=== PATIENT | male | born 1970 | race Caucasian/White ===

== ENCOUNTER 2017-08-26 03:22 | Emergency (ER) | payer OTHER ==
[2017-08-26 03:59] VITALS: BMI 20.4
[2017-08-26] MEDS ORDERED: morphine CARPU-JECT 4 MG/1 ML DISP.SYRIN IVPUSH ONE ×2 (04:01→06:05)
--- NOTE | 2017-08-26 04:11 | PDOC ---
History of Present Illness - General Chief Complaint: Pain Stated Complaint: GROIN PAIN Time Seen by Provider: 08/26/17 03:53 History Source: Patient - History of Present Illness Initial Comments: 08/26/17 04:33 46-year-old male complaining of left groin pain for 2 months that is now for the last 2 weeks noted to have increased swelling and pain. Denies urinary symptoms, +BM. + nausea, denies constipation 08/26/17 06:31 Past History - Past Medical History Allergies/Adverse Reactions: Allergies Allergy/AdvReac Type Severity Reaction Status Date / Time prednisone Allergy Verified 08/26/17 03:52 seafood Allergy anaphlyactic Uncoded 08/26/17 03:52 shock Home Medications: Ambulatory Orders No Home Medications 0 dose .ROUTE UTDICT 02/23/14 Oxycodone HCl/Acetaminophen [Percocet 5-325 mg Tablet] 1 tab PO Q6H PRN #10 tablet MDD 4 08/26/17 Anemia: No Asthma: Yes Cancer: No Cardiac Disorders: No CVA: No COPD: No CHF: No Dementia: No Diabetes: No GI Disorders: Yes Disorders: No HTN: No Hypercholesterolemia: No Liver Disease: No Seizures: No Thyroid Disease: No - Immunization History Immunization Up to Date: Yes - Suicide/Smoking/Psychosocial Hx Smoking History: Never smoked Have you smoked in the past 12 months: No If you are a former smoker, when did you quit?: 0 Information on smoking cessation initiated: No Hx Alcohol Use: Yes (vodka) Drug/Substance Use Hx: No Substance Use Type: None Review of Systems - Review of Systems Able to Perform ROS?: Yes Is the patient limited Prydeinig proficient: No Constitutional: No: Symptoms Reported, See HPI, Chills, Diaphoresis, Fever, Loss of Appetite, Malaise, Night Sweats, Weakness, Weight Stable, Unintentional Wgt. Loss, Unexplained wgt Loss, Other ABD/GI: Yes: Other (left groin pain and swelling) *Physical Exam - Vital Signs Last Vital Signs Temp Pulse Resp BP Pulse Ox 0/0 08/26/17 03:36 - Physical Exam General Appearance: Yes: Mild Distress Gastrointestinal/Abdominal: positive: Normal Bowel Sounds, Soft Male Genitalia: positive: normal genitalia, other (no testicular tenderness + left groin edema. unable to reduce hernia?) Extremity: positive: Normal Capillary Refill, Normal Inspection, Normal Range of Motion Integumentary: positive: Dry, Warm Neurologic: positive: Fully Oriented, Alert ED Treatment Course - LABORATORY CBC & Chemistry Diagram: 08/26/17 05:00 08/26/17 05:00 Progress Note - Progress Note Progress Note: left groin pain r/o incarcerated hernia. P: cbc cmp type and screen CTAP : Lungs laces are clear. The visualized cardiac chambers are of normal size and configuration. The pelvic small and large bowels are normal. Appendix is normal. The urinary bladder and prostate gland are normal. No pelvic free fluid is identified. There is no significant pelvic lymphadenopathy. There is an old compression deformity of T11 with mild retropulsion but no significant central canal narrowing. There is a small fat containing left inguinal hernia without bowel or associated inflammation. Small noninflamed fat-containing left inguinal hernia. pain control Medical Decision Making - Medical Decision Making 08/26/17 06:32 patient reports pain relief. will d/c home. strict return precautions reviewed with patient. *DC/Admit/Observation/Transfer Diagnosis at time of Disposition: Left inguinal hernia - Discharge Dispostion Disposition: HOME - Prescriptions Prescriptions: Oxycodone HCl/Acetaminophen [Percocet 5-325 mg Tablet] 1 tab PO Q6H PRN #10 tablet MDD 4 PRN Reason: Moderate Pain - Referrals Referrals: Rodrick Mello MD [Staff Physician] - - Patient Instructions Printed Discharge Instructions: Groin Hernia -- Adult Additional Instructions: follow up with surgeon as soon as possible take ibuprofen every 6 hours as needed for pain. take percocet every 6hours for moderate pain. return to the ER if symptoms worsen. - Post Discharge Activity
--- NOTE | 2017-08-26 04:26 | PDOC ---
*Physical Exam - Vital Signs Last Vital Signs Temp Pulse Resp BP Pulse Ox 0/0 08/26/17 03:36 ED Treatment Course - LABORATORY CBC & Chemistry Diagram: 08/26/17 05:00 08/26/17 05:00 Medical Decision Making - Medical Decision Making 08/26/17 04:26 agree with care from KWAME Carrion *DC/Admit/Observation/Transfer Diagnosis at time of Disposition: Left inguinal hernia - Discharge Dispostion Disposition: HOME - Prescriptions Prescriptions: Oxycodone HCl/Acetaminophen [Percocet 5-325 mg Tablet] 1 tab PO Q6H PRN #10 tablet MDD 4 PRN Reason: Moderate Pain - Referrals Referrals: Rodrick Mello MD [Staff Physician] - - Patient Instructions Printed Discharge Instructions: Groin Hernia -- Adult Additional Instructions: follow up with surgeon as soon as possible take ibuprofen every 6 hours as needed for pain. take percocet every 6hours for moderate pain. return to the ER if symptoms worsen. - Post Discharge Activity
[2017-08-26] MEDS ORDERED: morphine CARPU-JECT 10 MG/1 ML DISP.SYRIN ONE ×2 (04:35→06:12)
[2017-08-26] MEDS ORDERED: ONDANSETRON 4 MG/2 ML VIAL IVPUSH ONE (04:41)
[2017-08-26 04:48] VITALS: PULSE 103; TEMP 98
[2017-08-26 04:49] VITALS: BP 118/70
[2017-08-26 05:07] LABS: BASO # 0.1 # (0.1-1); BASO % 0.8 % (0-2.0); EOS # 0.1 # (0-4.5); EOS % 1.3 % (0-4.5); LYMPH # 3.4 (8-40); MCH 30.7 pg (25.7-33.7); MCHC 33.9 g/dl (32.0-35.9); MEAN CELL VOLUME 90.3 fl (80-96); MEAN PLT VOLUME 7.6 fl (7.5-11.1); MONO # 0.6 # (3.8-10.2); NEUT # 3.5 # (42.8-82.8); NEUT % 45.4 % (42.8-82.8); PLATELET COUNT 239 K/MM3 (134-434); WHITE BLOOD COUNT 7.7 K/mm3 (4.0-10.0)
[2017-08-26 05:18] LABS: INR 1.08 (0.82-1.09); PROTHROMBIN TIME (PATIENT) 12.2 SEC (9.98-11.88)
[2017-08-26 05:21] LABS: ACTIVATED PTT 32.8 SECONDS (26.9-34.4)
[2017-08-26] MEDS ORDERED: ONDANSETRON 4 MG/2 ML VIAL ONE (05:21)
[2017-08-26 05:45] LABS: ALBUMIN 3.9 g/dl (3.4-5.0); ALK PHOS 108 U/L (45-117); ANION GAP 10 (8-16); BILIRUBIN,TOTAL 0.6 mg/dL (0.2-1.0); CALCIUM 8.6 mg/dL (8.5-10.1); CO2 25 mmol/L (21-32); CREATININE 0.9 mg/dL (0.7-1.3); GLUCOSE,RANDOM 104 mg/dL (74-106); SGPT/ALT 82 U/L (12-78); TOT PROT 8.2 g/dl (6.4-8.2)
[2017-08-26 05:47] LABS: SGOT/AST 50 U/L (15-37)
[2017-08-26 06:31] LABS: URINE APPEARANCE CLEAR; URINE BILIRUBIN NEGATIVE (NEGATIVE); URINE BLOOD 1+ (NEGATIVE); URINE COLOR YELLOW; URINE GLUCOSE (UA) NEGATIVE (NEGATIVE); URINE KETONE NEGATIVE (NEGATIVE); URINE LEUK ESTERASE NEGATIVE (NEGATIVE); URINE NITRITE NEGATIVE (NEGATIVE); URINE PROTEIN NEGATIVE (NEGATIVE); URINE UROBILINOGEN NEGATIVE mg/dL (0.2-1.0)
[2017-08-26 06:48] LABS: URINE HYALINE CAST 6 /lpf; URINE MUCUS FEW; URINE RBC 1 /hpf (0-3); URINE WBC 1 /hpf (3-5)
[2017-08-26 13:55] LABS: URINE LEUK ESTERASE Negative (NEGATIVE)
== END 2017-08-26 06:37 | disposition home or self-care (01) ==
LOC: JER 03:22
PROC: 3E033NZ Introduction of Analgesics, Hypnotics, Sedatives into Peripheral Vein, Percutaneous Approach (ICD-10-PCS; principal; 2017-08-26)
PROC: 3E033NZ Introduction of Analgesics, Hypnotics, Sedatives into Peripheral Vein, Percutaneous Approach (ICD-10-PCS; 2017-08-26)
PROC: 3E033GC Introduction of Other Therapeutic Substance into Peripheral Vein, Percutaneous Approach (ICD-10-PCS; 2017-08-26)
DX: K40.90 Unilateral inguinal hernia, without obstruction or gangrene, not specified as recurrent (principal)
CPT/HCPCS: 36415; 74176-TC; 80053; 81003; 81015; 83690; 85025; 85610; 85730; 86850; 86900; 86901; 99281-25; 99283-25

== ENCOUNTER 2018-05-01 19:15 | Emergency (ER) | payer OTHER ==
[2018-05-01 19:19] VITALS: BMI 24.3
--- NOTE | 2018-05-01 21:34 | PDOC ---
History of Present Illness - General History Source: Patient Exam Limitations: No Limitations - History of Present Illness Initial Comments: 05/01/18 21:29 Patient is a 47-year-old male with past medical history of alcoholism, multiple right ankle fractures, spine fracture and fixation who presents to the emergency department today for chronic swelling in right leg and pain radiating down the left leg. Swelling increases on standing and goes down after lying down. Reports pain also increses as leg swells and gets better as swelling goes down. Patient also reports dilated veins in left leg. Also reporst a scab on lateral aspect on left leg which bleeds once he shaves it off. Patient also have h/o ankle fracture x3 from twist and x- done in last visit shows old healed fracture. Denies recent trauma, fever, chills, sob, chest pain. <Darinel Chavez - Last Filed: 05/01/18 22:30> <Alicia Dunbar - Last Filed: 05/01/18 22:43> - General Chief Complaint: Chronic pain Stated Complaint: CHEST PAIN Time Seen by Provider: 05/01/18 20:44 Past History - Past Medical History Anemia: No Asthma: Yes Cancer: No Cardiac Disorders: No CVA: No COPD: No CHF: No Dementia: No Diabetes: No GI Disorders: Yes Disorders: No HTN: No Hypercholesterolemia: No Liver Disease: No Seizures: No Thyroid Disease: No - Immunization History Immunization Up to Date: Yes - Suicide/Smoking/Psychosocial Hx Smoking History: Never smoked Have you smoked in the past 12 months: No If you are a former smoker, when did you quit?: 0 Information on smoking cessation initiated: No Hx Alcohol Use: Yes Drug/Substance Use Hx: No Substance Use Type: None <Darinel Chavez - Last Filed: 05/01/18 22:30> <Alicia Dunbar - Last Filed: 05/01/18 22:43> - Past Medical History Allergies/Adverse Reactions: Allergies Allergy/AdvReac Type Severity Reaction Status Date / Time prednisone Allergy Verified 04/30/18 00:07 seafood Allergy anaphlyactic Uncoded 04/30/18 00:07 shock Home Medications: Ambulatory Orders No Home Medications 0 dose .ROUTE UTDICT 02/23/14 Oxycodone HCl/Acetaminophen [Percocet 5-325 mg Tablet] 1 tab PO Q6H PRN #10 tablet MDD 4 08/26/17 Review of Systems - Review of Systems Able to Perform ROS?: Yes Constitutional: No: Chills, Fever HEENTM: No: Blurred Vision Respiratory: No: Cough, Shortness of Breath Cardiac (ROS): No: Chest Pain, Edema, Lightheadedness, Palpitations ABD/GI: No: Constipated, Difficulty Swallowing, Nausea : No: Burning, Dysuria, Discharge, Frequency, Incontinence, Pain, Urgency Musculoskeletal: Yes: Back Pain. No: Muscle Weakness Neurological: Yes: Paresthesia (left leg ), Tingling (left leg ). No: Headache <Darinel Chavez - Last Filed: 05/01/18 22:30> *Physical Exam - Vital Signs Last Vital Signs Temp Pulse Resp BP Pulse Ox 98.2 F 90 20 138/90 99 05/01/18 19:16 05/01/18 19:16 05/01/18 19:16 05/01/18 19:16 05/01/18 19:16 - Physical Exam General Appearance: Yes: Appropriately Dressed, Apparent Distress Neck: positive: Supple Respiratory/Chest: positive: Lungs Clear, Normal Breath Sounds. negative: Respiratory Distress, Accessory Muscle Use, Rales Cardiovascular: positive: Regular Rhythm, Regular Rate, S1, S2 Gastrointestinal/Abdominal: positive: Normal Bowel Sounds. negative: Tender, Guarding, Rebound Extremity: positive: Other (dialted tortuous veins present on left side with swelling, swelling decraesed once veins were empty. Scab present on lateral aspect of left leg. no ulcers. No focal tenderness of ankle. ). negative: Tender, Coldness, Cyanosis Neurologic: positive: motor equipment commanding officer II-XII NML intact, Fully Oriented, Alert, Normal Mood/ Affect, Normal Response, Motor Strength 5/5, Other (sensation to fine touch present b/l. pain present on staright leg raising test ) <Darinel Chavez - Last Filed: 05/01/18 22:30> - Vital Signs Last Vital Signs Temp Pulse Resp BP Pulse Ox 98.2 F 90 20 138/90 99 05/01/18 19:16 05/01/18 19:16 05/01/18 19:16 05/01/18 19:16 05/01/18 19:16 <Alicia Dunbar - Last Filed: 05/01/18 22:43> ED Treatment Course - ADDITIONAL ORDERS Additional order review: Laboratory Results 05/01/18 20:40 D-Dimer < 200 <Alicia Dunbar - Last Filed: 05/01/18 22:43> Medical Decision Making - Medical Decision Making 05/01/18 21:39 Patient has chronic pain and swelling in left leg. Swelling is likely from varicose vein present on left side. Pain can also be because of varicose vein and previous ankle fractures. Pain and tingling sensation radiating in leg is likely from lumber radiculopathy as patient has h/o spine surgery and straight leg raising test is positive. Numbness and tingling can also be because of vitamin b12 deficiency as patient is alcoholic and is not on multivitamin. Its less likely ti have DVT but we will get d-dimer. Patient explained in detail that he has varicose vein for which he needs to follow with vascular surgeon. Referral given for Dr. Meng davidson. Patient also advised to follow with his pcp and get vitamin b12 and hBa1c check. Patient didn't have his annual physical in last 30 years. For scab on left leg he needs to get biopsy by slab conditioner supervisor or vascular surgeon.( As it looks like it has vessel under it) 05/01/18 22:16 D-dimer <200. Patient advised to take over the counter pain meds and follow up with above mentioned. Discussed with Dr. Dunbar patient can be discharged home. <Darinel Chavez - Last Filed: 05/01/18 22:30> *DC/Admit/Observation/Transfer - Discharge Dispostion Decision to Admit order: No <Darinel Chavez - Last Filed: 05/01/18 22:30> <Alicia Dunbar - Last Filed: 05/01/18 22:43> Diagnosis at time of Disposition: Lumbar radiculopathy Varicose vein of leg Qualifiers: Varicose vein complication: unspecified Laterality: left Qualified Code(s): I83.92 - Asymptomatic varicose veins of left lower extremity - Discharge Dispostion Disposition: HOME Condition at time of disposition: Stable - Referrals - Patient Instructions Printed Discharge Instructions: DI for Varicose Veins, Lumbar Radiculopathy, DI for Lumbar Radiculopathy Additional Instructions: [email or web address] Dr. Hermila Bell [facility] Wear compression stocking. Keep legs elevated while sitting and sleeping. Wear comfortable shoes. Stop drinking alcohol. Take multivitamin daily. Follow up with your PCP for your physical. Follow up with Neurology Dr. Torres for lumbar rediculopathy. [phone] Meng davidson vascular surgeon for varicose vein. [phone]
--- NOTE | 2018-05-01 22:53 | PDOC ---
Attending Attestation - HPI HPI: 05/01/18 22:56 The patient is a 47 year old female with a significant PMH of alcoholism, asthma and multiple right ankle fractures who presents to the emergency department with chronic pain and left leg swelling . The patient describes his pain and a tingling sensation radiating in leg. He denies any recent injuries. He denies any other symptoms. He denies any numbness or weakness. He denies any fever, chills, nausea, vomit, diarrhea, constipation or urinary symptoms. He denies chest pain, shortness of breath, headache and dizziness. The patient denies any other complaints. - Physicial Exam PE: 05/01/18 22:56 GENERAL: Awake, alert, and fully oriented, in no acute distress HEAD: No signs of trauma EYES: PERRLA, EOMI, sclera anicteric, conjunctiva clear ENT: Auricles normal inspection, hearing grossly normal, nares patent, oropharynx clear without exudates. Moist mucosa NECK: Normal ROM, supple, no lymphadenopathy, JVD, or masses LUNGS: Breath sounds equal, clear to auscultation bilaterally. No wheezes, and no crackles HEART: (+)afibrile. Regular rhythm, normal S1 and S2, no murmurs, rubs or gallops ABDOMEN: Soft, nontender, normoactive bowel sounds. No guarding, no rebound. No masses EXTREMITIES: (+)bilateral varicose veins in legs. Normal range of motion, no edema. No clubbing or cyanosis. No cords, erythema, or tenderness NEUROLOGICAL: Cranial nerves II through XII grossly intact. Normal speech, normal gait SKIN: Warm, Dry, normal turgor, no rashes or lesions noted. Documentation prepared by Silvia Villalobos, acting as biomedical engineering supervisor for Alicia Dunbar MD <Silvia Villalobos - Last Filed: 05/01/18 22:56> - Resident Resident Name: Darinel Chavez - ED Attending Attestation I have performed the following: I have examined & evaluated the patient, The case was reviewed & discussed with the resident, I agree w/resident's findings & plan - Medical Decision Making 05/02/18 02:54 Ddimer negative; no DVT; pt has superficial varicosities of his legs bilaterally and he will be referred to vasc surgery for ablative therapy. We had a long discussion regarding pt's alcoholism. He thinks he has it under control. We suggested that he quit and decrease ETOH intake. <Alicia Dunbar - Last Filed: 05/02/18 02:55>
[2018-05-01 23:00] VITALS: BP 136/78; PULSE 89; TEMP 98.5
--- NOTE | 2018-05-03 13:39 | EKG ---
Test Reason : Blood Pressure : / mmHG Vent. Rate : 084 BPM Atrial Rate : 084 BPM P-R Int : 192 ms QRS Dur : 080 ms QT Int : 384 ms P-R-T Axes : 053 019 034 degrees QTc Int : 453 ms NORMAL SINUS RHYTHM MINIMAL VOLTAGE CRITERIA FOR LVH, MAY BE NORMAL VARIANT BORDERLINE ECG WHEN COMPARED WITH ECG OF 30-SEP-2013 23:06, NO SIGNIFICANT CHANGE WAS FOUND Confirmed by DEEP HAWTHORNE MD ([id number]) on 05/03/2018 1:38:59 PM Referred By: Confirmed By:DEEP HAWTHORNE MD
== END 2018-05-01 23:00 | disposition home or self-care (01) ==
LOC: JER 19:15
DX: I83.92 Asymptomatic varicose veins of left lower extremity (principal); G89.29 Other chronic pain
CPT/HCPCS: 85379; 93005; 93010; 99281-25

== ENCOUNTER 2019-04-26 08:44 | Emergency (ER) | payer OTHER ==
[2019-04-26 08:50] VITALS: BMI 24.4
--- NOTE | 2019-04-26 09:09 | PDOC ---
History of Present Illness - General Chief Complaint: Pain Stated Complaint: ABD PAIN Time Seen by Provider: 04/26/19 09:08 - History of Present Illness Initial Comments: 04/26/19 10:36 HPI: 48 y/o M with hx of lumbar radiculopathy, liver cysts c/b perihepatic fluid collection s/p drain placement 4 years ago now presenting with 3 days of abdominal pain. Pain is diffuse but primarily BL LQ and initially occurred q1- 1.5hrs and lasted 5 seconds at a time; sharp in nature. Pain is worse with food and would wake patient up at night. Pain is now worsened, and occurring with increased frequency. Patient travels for work but reports no food out of the ordinary for him. He also reports nausea and 2 episodes of emesis. He also has subjective fevers, chills, night sweats, lightheadedness. He also reports multiple loose stools and watery diarrhea, now occuring every hour. Denies chest pain, SOB, dizziness, dysuria, BPR, syncope PMHx: as noted above ROS: as noted SHx: Denies tobacco; occasional alcohol; no rec drugs Allergies: NKDA Past History - Past Medical History Allergies/Adverse Reactions: Allergies Allergy/AdvReac Type Severity Reaction Status Date / Time prednisone Allergy Verified 04/26/19 08:49 seafood Allergy anaphlyactic Uncoded 04/26/19 08:49 shock Home Medications: Ambulatory Orders No Home Medications 0 dose .ROUTE UTDICT 02/23/14 Oxycodone HCl/Acetaminophen [Percocet 5-325 mg Tablet] 1 tab PO Q6H PRN #10 tablet MDD 4 08/26/17 Ciprofloxacin [Cipro -] 500 mg PO Q12H #13 tablet 04/26/19 Metoclopramide HCl [Reglan] 5 mg PO QID PRN #10 tablet 04/26/19 metroNIDAZOLE [Flagyl -] 500 mg PO DAILY #20 tablet 04/26/19 Anemia: No Asthma: Yes Cancer: No Cardiac Disorders: No CVA: No COPD: No CHF: No Dementia: No Diabetes: No GI Disorders: Yes Disorders: No HTN: No Hypercholesterolemia: No Liver Disease: No Seizures: No Thyroid Disease: No - Surgical History Abdominal Surgery: Yes (hernia 2 yrs ago) Cholecystectomy: (drain years ago) - Immunization History Immunization Up to Date: Yes - Suicide/Smoking/Psychosocial Hx Smoking History: Never smoked Have you smoked in the past 12 months: No If you are a former smoker, when did you quit?: 0 Hx Alcohol Use: Yes Drug/Substance Use Hx: No Substance Use Type: None Review of Systems - Review of Systems Comments:: 04/26/19 11:54 GENERAL/CONSTITUTIONAL: No weakness. HEAD, EYES, EARS, NOSE AND THROAT: No change in vision. No ear pain or discharge. No sore throat. CARDIOVASCULAR: No chest pain or shortness of breath RESPIRATORY: No cough, wheezing, or hemoptysis. GASTROINTESTINAL: +nausea, vomiting, diarrhea GENITOURINARY: No dysuria, frequency, or change in urination. MUSCULOSKELETAL: No joint or muscle swelling or pain. No neck or back pain. SKIN: No rash NEUROLOGIC: No vertigo, loss of consciousness, or change in strength/sensation. ENDOCRINE: No increased thirst. No abnormal weight change HEMATOLOGIC/LYMPHATIC: No anemia, easy bleeding, or history of blood clots. ALLERGIC/IMMUNOLOGIC: No hives or skin allergy. *Physical Exam - Vital Signs Last Vital Signs Temp Pulse Resp BP Pulse Ox 97.8 F 115 H 18 132/94 98 04/26/19 08:46 04/26/19 08:46 04/26/19 08:46 04/26/19 08:46 04/26/19 08:46 - Physical Exam Comments: 04/26/19 11:55 GENERAL: Awake, alert, and fully oriented, in mild acute distress HEAD: No signs of trauma, normocephalic, atraumatic EYES: PERRLA, EOMI, sclera anicteric, conjunctival pallor ENT: Auricles normal inspection, hearing grossly normal, nares patent, oropharynx clear without exudates. Moist mucosa NECK: Normal ROM, supple, no lymphadenopathy, JVD, or masses LUNGS: No distress, speaks full sentences, clear to auscultation bilaterally HEART: Regular rate and rhythm, normal S1 and S2, no murmurs, rubs or gallops, peripheral pulses normal and equal bilaterally. ABDOMEN: Soft, significant tenderness in RUQ, RLQ, and LLQ with guarding; no CVAT, normoactive bowel sounds. no rebound. No masses : normal testicular exam EXTREMITIES : Normal inspection, Normal range of motion, no edema. No clubbing or cyanosis. NEUROLOGICAL: Cranial nerves II through XII grossly intact. Normal speech, normal gait, no focal sensorimotor deficits SKIN: Warm, Dry, pale ED Treatment Course - LABORATORY CBC & Chemistry Diagram: 04/26/19 10:00 04/26/19 10:00 Medical Decision Making - Medical Decision Making 04/26/19 11:56 48 y/o M with hx of lumbar radiculopathy, liver cysts c/b perihepatic fluid collection s/p drain placement 4 years ago now presenting with 3 days of abdominal pain associated with nausea, emesis, diarrhea. Vitals notable for HR 115. PE with signifcaint abdominal tenderness and guarding. DDx includes gastroenteritis vs biliary pathology vs hepatic pathology vs UTI vs appendicitis -T$S. coags, cbc, cmp, lipase, UA, UCx -CT abd/pel with con, RUQ US -IVF, zofran, ofirmev, pepcid, 04/26/19 11:59 labs unremarkable pain improved since meds and IVF 04/26/19 13:25 CT/ABDOMEN PELVIS CT WITH CONTR Comparison: Prior CT scan of the abdomen pelvis dated 08/26/2017 Visualized lung base appears unremarkable and the heart is within normal limits in size. Partially distended stomach without wall thickening. Evaluation of the liver, spleen, pancreas, gallbladder, both adrenal glands and both kidneys appear unremarkable. There is no evidence of small bowel obstruction. Nondistention of the terminal ileum with suggestion of wall thickening. There is diffuse thickening of the ascending colon with stranding of the surrounding fat as well as mild thickening of the proximal transverse colon consistent with colitis. There is also thickening of the splenic flexure wall. Nondistention of the descending colon limiting its evaluation with suggestion of wall thickening. There is mild stranding around the distal descending colon. Thickening of the sigmoid colon wall.. A moderate size fat-containing left inguinal hernia is present. Partially distended urinary bladder without wall thickening. Normal size prostate gland. Perirectal and pericecal fat are clear. No enlarged mesenteric lymph nodes are identified. No free air is seen. Minimal free fluid in the pelvis. Normal size and enhancement of the abdominal aorta down through its bifurcation with small calcified lax present. Moderate likely chronic compression of T11 vertebral body again seen with mild retropulsion of its diffuse/posterior margin IMPRESSION: Interval thickening of the colon with relative sparing of the transverse colon consistent with colitis, inflammatory versus infectious. Minimal free fluid in the pelvis. There is also suggestion of thickening of the terminal ileum wall. Rule out Crohn's disease. Discussed with patient diagnosis and management recommendations Recommending followup with GI for colonscopy and bx for further eval Patient comfortable with instructions and was DCd home *DC/Admit/Observation/Transfer Diagnosis at time of Disposition: Colitis, Abdominal pain, vomiting, and diarrhea Abdominal pain Qualifiers: Abdominal location: lower abdomen, unspecified Qualified Code(s): R10.30 - Lower abdominal pain, unspecified - Discharge Dispostion Disposition: HOME Condition at time of disposition: Stable Decision to Admit order: No - Prescriptions Prescriptions: Ciprofloxacin [Cipro -] 500 mg PO Q12H #13 tablet Metoclopramide HCl [Reglan] 5 mg PO QID PRN #10 tablet PRN Reason: Nausea metroNIDAZOLE [Flagyl -] 500 mg PO DAILY #20 tablet - Referrals Referrals: ON STAFF,NOT [Primary Care Provider] - Reyes Feldman MD [Staff Physician] - - Patient Instructions Printed Discharge Instructions: DI for Colitis Additional Instructions: Additional Instructions: Please return to the emergency department with any new or worsening symptoms or concerns including severe pain, vomiting, bloody diarrhea. Please follow up with your PCP within 1 week Please see garment form assembler as soon as possible for further evaluation with colonoscopy given CT findings Please take antibiotics as prescribed. Take tylenol for pain. Avoid NSAIDs such as ibuprofen, aleve, advil, naproxen - Post Discharge Activity
[2019-04-26] MEDS ORDERED: ONDANSETRON 4 MG/2 ML VIAL IVPUSH ONE ×2 (09:35→13:14)
[2019-04-26] MEDS ORDERED: SODIUM CHLORIDE 1,000 ML IV STA (09:35)
[2019-04-26] MEDS ORDERED: ONDANSETRON 4 MG/2 ML VIAL ONE ×2 (09:43→13:33)
[2019-04-26] MEDS ORDERED: ACETAMINOPHEN 1000 MG/100 ML VIAL (NON FORMULARY) IVPB ONE (09:55)
[2019-04-26] MEDS ORDERED: FAMOTIDINE 20 MG/50 ML IVPB 20 MG/50 ML MG IVPB ONE ×2 (09:55→10:08)
[2019-04-26] MEDS ORDERED: ACETAMINOPHEN INJECTION 100 ML IVPB ONE (10:08)
[2019-04-26 10:25] LABS: BASO % 0.6 % (0-2.0); EOS % 1.2 % (0-4.5); HEMATOCRIT 45.9 % (35.4-49); HEMOGLOBIN 15.9 GM/dL (11.7-16.9); LYMPH % 19.3 % (8-40); MCH 31.4 pg (25.7-33.7); MCHC 34.7 g/dl (32.0-35.9); MEAN CELL VOLUME 90.4 fl (80-96); MEAN PLT VOLUME 7.6 fl (7.5-11.1); MONO % 10.3 % (3.8-10.2); NEUT % 68.6 % (42.8-82.8); PLATELET COUNT 202 K/MM3 (134-434); RBC 5.08 M/mm3 (4.00-5.60); RDW 13.7 % (11.9-15.9); WHITE BLOOD COUNT 5.9 K/mm3 (4.0-10.0)
[2019-04-26 10:55] LABS: ALBUMIN 3.5 g/dl (3.4-5.0); BILIRUBIN,TOTAL 0.8 mg/dL (0.2-1); BLOOD UREA NITROGEN 6.6 mg/dL (7-18); POTASSIUM 3.9 mmol/L (3.5-5.1); TOT PROT 7.3 g/dl (6.4-8.2)
[2019-04-26 11:07] LABS: INR 1.1 (0.83-1.09)
[2019-04-26] MEDS ORDERED: SODIUM CHLORIDE 0.9% 1000 ML INFUS.BAG IV ONE (12:39)
[2019-04-26 12:48] LABS: PH,URINE 5.5 (5.0-8.0); URINE APPEARANCE CLEAR; URINE BILIRUBIN NEGATIVE (NEGATIVE); URINE COLOR YELLOW; URINE GLUCOSE (UA) NEGATIVE (NEGATIVE); URINE KETONE TRACE (NEGATIVE); URINE LEUK ESTERASE NEGATIVE (NEGATIVE); URINE NITRITE NEGATIVE (NEGATIVE); URINE PROTEIN TRACE (NEGATIVE); URINE UROBILINOGEN 0.2 mg/dL (0.2-1.0)
[2019-04-26] MEDS ORDERED: metroNIDAZOLE 250 MG TABLET PO ONE (13:45)
[2019-04-26] MEDS ORDERED: CIPROFLOXACIN 500 MG TABLET (RESTRICTED TO ID) PO ONE (13:45)
[2019-04-26 13:52] VITALS: TEMP 98.1
[2019-04-26] MEDS ORDERED: metroNIDAZOLE 250 MG TABLET ONE (14:10)
--- NOTE | 2019-04-26 14:46 | PDOC ---
Documentation entered by Gracie Campos SCRIBE, acting as scribe for Romeo Orozco MD. Romeo Orozco MD: This documentation has been prepared by the Andres glover Sammi, SCRIBE, under my direction and personally reviewed by me in its entirety. I confirm that the documentation accurately reflects all work, treatment, procedures, and medical decision making performed by me. Attending Attestation - Resident Resident Name: ManperetBetinajerri - ED Attending Attestation I have performed the following: I have examined & evaluated the patient, The case was reviewed & discussed with the resident, I agree w/resident's findings & plan, Exceptions are as noted - HPI HPI: 04/26/19 12:27 The patient is a 48 year old male, with a significant PMH of lumbar radiculopathy, liver cysts, who presents to the emergency department for evaluation of 3 days of sharp, diffuse, abdominal pain with associated nausea, nonbloody, nonbilious vomiting x2, and diarrhea. The patient also reports a subjective fever and chills. Denies new food or recent travel. Denies chest pain, shortness of breath, headache and dizziness. Denies dysuria, frequency, urgency and hematuria. Allergies: Prednisone, seafood Social history: Occasional alcohol PCP: Adalid - Physicial Exam PE: 04/26/19 12:35 Vitals: Triage vital signs reviewed General Appearance: No acute distress, well nourished, well developed Cardiac: Regular rate and rhythm, no murmurs, no rubs, no gallops Lungs: Clear to auscultation bilateral, good air movement bilaterally Abdomen: (+)mild lower abdominal tenderness. Soft, nondistended, normal bowel sounds. No rebound or guarding. Extremities: Full range of motion to all extremities, no cyanosis, clubbing, or edema - Medical Decision Making 04/26/19 15:08 48 years old with lifelong history of abdominal pain and diarrhea presents to the ED with several day history of diffuse intermittent abdominal discomfort were nonbloody nonbilious vomiting and diarrhea CAT scan demonstrates colitis with possible thickening of the terminal ileum patient treated with Cipro Flagyl informed of need for GI follow-up to evaluate for the possibility of Crohn's disease Findings, the need for follow-up and strict return instructions discussed with patient.
[2019-04-26 15:19] VITALS: BP 123/88; PULSE 87
== END 2019-04-26 15:17 | disposition home or self-care (01) ==
LOC: JER 08:44
PROC: 3E0337Z Introduction of Electrolytic and Water Balance Substance into Peripheral Vein, Percutaneous Approach (ICD-10-PCS; principal; 2019-04-26)
PROC: 3E033NZ Introduction of Analgesics, Hypnotics, Sedatives into Peripheral Vein, Percutaneous Approach (ICD-10-PCS; 2019-04-26)
PROC: 3E033GC Introduction of Other Therapeutic Substance into Peripheral Vein, Percutaneous Approach (ICD-10-PCS; 2019-04-26)
PROC: 3E033GC Introduction of Other Therapeutic Substance into Peripheral Vein, Percutaneous Approach (ICD-10-PCS; 2019-04-26)
DX: K52.9 Noninfective gastroenteritis and colitis, unspecified (principal)
CPT/HCPCS: 36415; 74177-TC; 76705-TC; 80053; 81003; 83690; 85025; 85610; 85730; 86850; 86900; 86901; 87086; 99283-25; J0131; J7030

== ENCOUNTER 2020-04-16 03:08 | Emergency (ER) | payer OTHER ==
[2020-04-16 03:28] VITALS: TEMP 97.9; BMI 25.9
--- NOTE | 2020-04-16 04:32 | PDOC ---
Attending Attestation - Resident Resident Name: Joesph Mg - ED Attending Attestation I have performed the following: I have examined & evaluated the patient, The case was reviewed & discussed with the resident, I agree w/resident's findings & plan, Exceptions are as noted - HPI HPI: 49 yo M history inguinal hernia presents with groin pain x2 days. He has prior history of inguinal hernia, which was repaired 2 years ago. He states that he had tightness in the left groin which has increased over the past 2 weeks, but has been much worse for the past 2 days. Denies penile discharge. - Physicial Exam PE: GENERAL: Awake, alert, and fully oriented, in no acute distress HEAD: No signs of trauma EYES: PERRLA, EOMI, sclera anicteric, conjunctiva clear ENT: Auricles normal inspection, hearing grossly normal, nares patent, oropharynx clear without exudates. Moist mucosa NECK: Normal ROM, supple, no lymphadenopathy, JVD, or masses LUNGS: Breath sounds equal, clear to auscultation bilaterally. No wheezes, and no crackles HEART: Regular rate and rhythm, normal S1 and S2, no murmurs, rubs or gallops ABDOMEN: Soft, nontender, normoactive bowel sounds. No guarding, no rebound. No masses EXTREMITIES: Normal range of motion, no edema. No clubbing or cyanosis. No cords, erythema, or tenderness NEUROLOGICAL: Cranial nerves II through XII grossly intact. Normal speech. Motor and sensation intact. +Antalgic gait SKIN: Warm, dry, normal turgor, no rashes or lesions noted. - Medical Decision Making Groin pain, elevated lactate, r/o strangulated hernia vs testicular torsion. Discharge - Discharge Information Problems reviewed: Yes Clinical Impression/Diagnosis: Hydrocele, bilateral, Testicular cyst Inguinal hernia Qualifiers: Obstruction and gangrene presence: without obstruction or gangrene Laterality: bilateral Recurrence: not specified as recurrent Qualified Code(s): K40.20 - Bilateral inguinal hernia, without obstruction or gangrene, not specified as recurrent Condition: Stable Disposition: HOME - Additional Discharge Information Prescriptions: Oxycodone HCl/Acetaminophen [Percocet 5-325 mg Tablet] 1 tab PO Q6H PRN #2 tablet MDD 2 PRN Reason: Pain Level 4 - 6 - Follow up/Referral Referrals: Rodrick Mello MD [Staff Physician] - Dominick Ewing MD [Staff Physician] - - Patient Discharge Instructions Patient Printed Discharge Instructions: DI for Groin Hernia, DI for Hydrocele- Adult Additional Instructions: You were seen in the ER for complaints of abdominal pain Your labwork and CT were largely normal Your scan showed an unchanged inguinal hernia. Your ultrasound showed a small left testicular cyst and small bilateral hydroceles. You are to follow up with General Surgery and Urology within 1 week and you have referrals provided to you today. Return to the ER if you develop worsening abdominal pain, constipation, inability to pass gas, testicular pain, vomiting or any other concerning symptoms. - Post Discharge Activity
[2020-04-16] MEDS ORDERED: morphine SULFATE 4 MG/ML VIAL IVPUSH ONE (04:43)
[2020-04-16] MEDS ORDERED: morphine SULFATE 4 MG/ML VIAL ONE (04:49)
[2020-04-16 05:33] LABS: BASO % 0.7 % (0-2.0); EOS % 1.1 % (0-4.5); HEMATOCRIT 47.4 % (35.4-49); HEMOGLOBIN 16.3 GM/dL (11.7-16.9); LYMPH % 47.6 % (8-40); MCH 31.2 pg (25.7-33.7); MCHC 34.4 g/dl (32.0-35.9); MEAN CELL VOLUME 90.6 fl (80-96); MEAN PLT VOLUME 7.5 fl (7.5-11.1); MONO % 6.4 % (3.8-10.2); NEUT % 44.2 % (42.8-82.8); PLATELET COUNT 236 K/MM3 (134-434); RBC 5.23 M/mm3 (4.00-5.60); RDW 13.5 % (11.9-15.9); WHITE BLOOD COUNT 7.5 K/mm3 (4.0-10.0)
[2020-04-16 05:59] LABS: ALBUMIN 4.4 g/dl (3.4-5.0); BILIRUBIN,TOTAL 0.4 mg/dL (0.2-1); BLOOD UREA NITROGEN 14.7 mg/dL (7-18); CALCIUM 9.1 mg/dL (8.5-10.1); CREATININE 0.9 mg/dL (0.55-1.3); POTASSIUM 4.1 mmol/L (3.5-5.1); TOT PROT 8.2 g/dl (6.4-8.2)
--- NOTE | 2020-04-16 06:47 | PDOC ---
History of Present Illness <Bria Ayers - Last Filed: 04/16/20 07:36> - History of Present Illness Initial Comments: 49 YOM h/o inguinal hernia presents with groin pain of 2 days duration. Patient reports that he had inguinal hernia 2 years ago on the left side that was surgically repaired. He reports that he had always had some "tightness" in his left groin, however 2 weeks ago this sensation was particularly increased. 2 days prior to arrival he began to experience intense pain in this region. He also reports an accompanying bulge in his groin on the left side. He denies fever, chills, nausea, vomiting, diarrhea, urinary symptoms, bowel symptoms, penile discharge, or recent sexual activity or vigorous exercise. Constitutional: No Weight Change, No Fever, No Chills, No Night Sweats, No F atigue, No Malaise ENT/Mouth: No Hearing Changes, No Ear Pain, No Nasal Congestion, No Sinus Pain, No Hoarseness, No sore throat, No Rhinorrhea, No Swallowing Difficulty Eyes: No Eye Pain, No Swelling, No Redness, No Foreign Body, No Discharge, No Vision Changes Cardiovascular: No Chest Pain, No SOB, No PND, No Dyspnea on Exertion, No Orthopnea, No Claudication, No Edema, No Palpitations Respiratory: No Cough, No Sputum, No Wheezing, No Smoke Exposure, No Dyspnea Gastrointestinal: No Nausea, No Vomiting, No Diarrhea, No Constipation, No Pain, No Heartburn, No Anorexia, No Dysphagia, No Hematochezia, No Melena, No Flatulence, No Jaundice Genitourinary: No Dyspareunia, No Dysuria, No Urinary Frequency, No Hematuria, No Urinary Incontinence, No Urgency, No Flank Pain, No Urinary Flow Changes, No Hesitancy Musculoskeletal: No Arthralgias, No Myalgias, No Joint Swelling, No Joint Stiff ness, No Back Pain, No Neck Pain, No Injury History Skin: No Skin Lesions, No Pruritis, No Hair Changes, No Breast/Skin Changes, No Nipple Discharge Neuro: No Weakness, No Numbness, No Paresthesias, No Loss of Consciousness, No Syncope, No Dizziness, No Headache, No Coordination Changes, No Recent Falls Psych: No Anxiety/Panic, No Depression, No Insomnia, No Personality Changes, No Delusions, No Rumination, No SI/HI/AH/VH, No Social Issues, No Memory Changes, No Violence/Abuse Hx., No Eating Concerns Heme/Lymph: No Bruising, No Bleeding, No Transfusions History, No Lymphadenopathy Endocrine: No Polyuria, No Polydipsia, No Temperature Intolerance 04/16/20 06:47 <Joesph Mg - Last Filed: 04/18/20 20:48> - General Chief Complaint: Pain, Acute Stated Complaint: CROTCH PAIN Time Seen by Provider: 04/16/20 03:53 Past History <Bria Ayers - Last Filed: 04/16/20 07:36> - Medical History Anemia: No Asthma: Yes Cancer: No Cardiac Disorders: No CVA: No COPD: No CHF: No Dementia: No Diabetes: No GI Disorders: Yes Disorders: No HTN: No Hypercholesterolemia: No Liver Disease: No Psychiatric Problems: Yes Seizures: No Thyroid Disease: No - Surgical History Abdominal Surgery: Yes (hernia 2 yrs ago) Cholecystectomy: (drain years ago) - Immunization History Immunization Up to Date: Yes - Psycho-Social/Smoking History Smoking History: Never smoked Have you smoked in the past 12 months: No If you are a former smoker, when did you quit?: 0 - Substance Abuse Hx (Audit-C & DAST Scrn) How often the patient has a drink containing alcohol: 4 0r more times/wk Number of drinks the patient has on a typical day: 3 or 4 How often the patient has six or more drinks on one occasion: Weekly Score: In Men: 4 or > Positive; In Women: 3 or > Positive: 8 Screen Result (Pos requires Nsg. Audit-10AR): Positive In the last yr the pt used illegal drug/Rx for NonMed reason: No Score: Yes response is considered Positive: 0 Screen Result (Positive result requires Nsg. DAST-10): Negative <Joesph Mg - Last Filed: 04/18/20 20:48> - Medical History Allergies/Adverse Reactions: Allergies Allergy/AdvReac Type Severity Reaction Status Date / Time prednisone Allergy Verified 04/26/19 08:49 seafood Allergy anaphlyactic Uncoded 04/26/19 08:49 shock Home Medications: Ambulatory Orders No Home Medications 0 dose .ROUTE UTDICT 02/23/14 Oxycodone HCl/Acetaminophen [Percocet 5-325 mg Tablet] 1 tab PO Q6H PRN #10 tablet MDD 4 08/26/17 Ciprofloxacin [Cipro -] 500 mg PO Q12H #13 tablet 04/26/19 Metoclopramide HCl [Reglan] 5 mg PO QID PRN #10 tablet 04/26/19 metroNIDAZOLE [Flagyl -] 500 mg PO DAILY #20 tablet 04/26/19 Oxycodone HCl/Acetaminophen [Percocet 5-325 mg Tablet] 1 tab PO Q6H PRN #2 tablet MDD 2 04/16/20 *Physical Exam - Vital Signs Last Vital Signs Temp Pulse Resp BP Pulse Ox 97.9 F 105 H 18 118/77 98 04/16/20 03:26 04/16/20 03:26 04/16/20 03:26 04/16/20 03:26 04/16/20 03:26 <Bria Ayers - Last Filed: 04/16/20 07:36> - Vital Signs Last Vital Signs Temp Pulse Resp BP Pulse Ox 97.9 F 105 H 18 118/77 98 04/16/20 03:26 04/16/20 03:26 04/16/20 03:26 04/16/20 03:26 04/16/20 03:26 - Physical Exam General Appearance: Yes: Nourished, Apparent Distress HEENT: positive: EOMI, TRIXIE, Normal ENT Inspection, Normal Voice Neck: positive: Tender, Normal Thyroid Respiratory/Chest: positive: Lungs Clear, Normal Breath Sounds Cardiovascular: positive: Regular Rhythm, Regular Rate, S1, S2 Gastrointestinal/Abdominal: positive: Flat, Soft Male Genitalia: positive: inguinal hernia Musculoskeletal: positive: Normal Inspection, CVA Tenderness Extremity: positive: Normal Capillary Refill, Normal Inspection Integumentary: positive: Normal Color, Dry, Warm Neurologic: positive: Fully Oriented, Alert, Normal Mood/Affect, Normal Response, Motor Strength 5/5 <Joesph Mg - Last Filed: 04/18/20 20:48> ED Treatment Course - LABORATORY CBC & Chemistry Diagram: 04/16/20 05:00 04/16/20 05:00 - ADDITIONAL ORDERS Additional order review: Laboratory Results 04/16/20 04/16/20 05:00 05:00 Sodium 141 Potassium 4.1 Chloride 105 Carbon Dioxide 22 Anion Gap 13 BUN 14.7 Creatinine 0.9 Est GFR (CKD-EPI)AfAm 114.21 Est GFR (CKD-EPI)NonAf 98.54 Random Glucose 90 Lactic Acid 3.4 H* Calcium 9.1 Total Bilirubin 0.4 AST 35 ALT 55 Alkaline Phosphatase 89 Total Protein 8.2 Albumin 4.4 04/16/20 05:00 RBC 5.23 MCV 90.6 MCHC 34.4 RDW 13.5 MPV 7.5 Neutrophils % 44.2 D Lymphocytes % 47.6 H D Monocytes % 6.4 Eosinophils % 1.1 Basophils % 0.7 - Medications Given in the ED: ED Medications Discontinued Medications Generic Name Dose Route Start Last Admin Trade Name Freq PRN Reason Stop Dose Admin Morphine Sulfate 4 mg 04/16/20 04:43 04/16/20 05:06 Morphine Sulfate IVPUSH 04/16/20 04:44 4 mg ONCE ONE Administration <Bria Ayers - Last Filed: 04/16/20 07:36> - LABORATORY CBC & Chemistry Diagram: 04/16/20 05:00 04/16/20 05:00 - ADDITIONAL ORDERS Additional order review: Laboratory Results 04/16/20 04/16/20 05:00 05:00 Sodium 141 Potassium 4.1 Chloride 105 Carbon Dioxide 22 Anion Gap 13 BUN 14.7 Creatinine 0.9 Est GFR (CKD-EPI)AfAm 114.21 Est GFR (CKD-EPI)NonAf 98.54 Random Glucose 90 Lactic Acid 3.4 H* Calcium 9.1 Total Bilirubin 0.4 AST 35 ALT 55 Alkaline Phosphatase 89 Total Protein 8.2 Albumin 4.4 04/16/20 05:00 RBC 5.23 MCV 90.6 MCHC 34.4 RDW 13.5 MPV 7.5 Neutrophils % 44.2 D Lymphocytes % 47.6 H D Monocytes % 6.4 Eosinophils % 1.1 Basophils % 0.7 - Medications Given in the ED: ED Medications Discontinued Medications Generic Name Dose Route Start Last Admin Trade Name Freq PRN Reason Stop Dose Admin Morphine Sulfate 4 mg 04/16/20 04:43 04/16/20 05:06 Morphine Sulfate IVPUSH 04/16/20 04:44 4 mg ONCE ONE Administration <Joesph Mg - Last Filed: 04/18/20 20:48> Medical Decision Making - Medical Decision Making 49 YOM h/o inguinal hernia presents with groin pain of 2 days duration. Patient reports that he had inguinal hernia 2 years ago on the left side that was surgically repaired. He reports that he had always had some "tightness" in his left groin, however 2 weeks ago this sensation was particularly increased. 2 days prior to arrival he began to experience intense pain in this region. He also reports an accompanying bulge in his groin on the left side. He denies fever, chills, nausea, vomiting, diarrhea, urinary symptoms, bowel symptoms, penile discharge, or recent sexual activity or vigorous exercise. On arrival vitals are wnl, exam reveals large bulge on left side of groin, 4 cm off the midline consistent with inguinal hernia, is not reducible. ddx includes but is not limited to: inguinal hernia, testicular torsion, epididymitis. plan: CT abdomen and pelvis, Srotal Ultrasound. CBC, CMP, lactate. Pain control with morphine. reassess: Labs wnl. Lactate 3.4, CT revealed bilateral inguinal hernias, left greater than right, with no acute abdominal pathology. Scrotal US shows small testicular cyst, no evidence of torsion. dispo: patient was signed out to daytime team. <Joesph Mg - Last Filed: 04/18/20 20:48> Discharge - Discharge Information Problems reviewed: Yes <Bria Ayers - Last Filed: 04/16/20 07:36> <Joesph Mg - Last Filed: 04/18/20 20:48> - Discharge Information Clinical Impression/Diagnosis: Hydrocele, bilateral, Testicular cyst Inguinal hernia Qualifiers: Obstruction and gangrene presence: without obstruction or gangrene Laterality: bilateral Recurrence: not specified as recurrent Qualified Code(s): K40.20 - Bilateral inguinal hernia, without obstruction or gangrene, not specified as recurrent Condition: Stable Disposition: HOME - Additional Discharge Information Prescriptions: Oxycodone HCl/Acetaminophen [Percocet 5-325 mg Tablet] 1 tab PO Q6H PRN #2 tablet MDD 2 PRN Reason: Pain Level 4 - 6 - Follow up/Referral Referrals: Rodrick Mello MD [Staff Physician] - Dominick Ewing MD [Staff Physician] - - Patient Discharge Instructions Patient Printed Discharge Instructions: DI for Groin Hernia, DI for Hydrocele- Adult Additional Instructions: You were seen in the ER for complaints of abdominal pain Your labwork and CT were largely normal Your scan showed an unchanged inguinal hernia. Your ultrasound showed a small left testicular cyst and small bilateral hydroceles. You are to follow up with General Surgery and Urology within 1 week and you have referrals provided to you today. Return to the ER if you develop worsening abdominal pain, constipation, inability to pass gas, testicular pain, vomiting or any other concerning symptoms.
[2020-04-16] MEDS ORDERED: morphine CARPU-JECT 2 MG/1 ML DISP.SYRIN IVPUSH ONE (07:35)
[2020-04-16] MEDS ORDERED: MORPHINE SULFATE 2 MG/ML VIAL ONE (07:41)
[2020-04-16] MEDS ORDERED: SODIUM CHLORIDE 500 ML IV SCH (07:45)
--- NOTE | 2020-04-16 10:22 | PDOC ---
*Physical Exam - Vital Signs Last Vital Signs Temp Pulse Resp BP Pulse Ox 97.9 F 105 H 18 118/77 98 04/16/20 03:26 04/16/20 03:26 04/16/20 03:26 04/16/20 03:26 04/16/20 03:26 - Physical Exam 04/16/20 10:15 Patient's care endorsed to me at the beginning of my shift. Patient is a 49YOM with h/o chronic low abdominal pain who p/w worsened pain in the past 2 weeks, significantly worse overnight tonight. Denies testicular pain/swelling, states pain is in the left low groin radiating slightly to proximal medial thigh. Given morphine initially for pain with relief. Elevated lactate, pending CT imaging and reassessment. ED Treatment Course - LABORATORY CBC & Chemistry Diagram: 04/16/20 05:00 04/16/20 05:00 - ADDITIONAL ORDERS Additional order review: Laboratory Results 04/16/20 04/16/20 04/16/20 08:30 05:00 05:00 Sodium 141 Potassium 4.1 Chloride 105 Carbon Dioxide 22 Anion Gap 13 BUN 14.7 Creatinine 0.9 Est GFR (CKD-EPI)AfAm 114.21 Est GFR (CKD-EPI)NonAf 98.54 Random Glucose 90 Lactic Acid 2.4 H* 3.4 H* Calcium 9.1 Total Bilirubin 0.4 AST 35 ALT 55 Alkaline Phosphatase 89 Total Protein 8.2 Albumin 4.4 04/16/20 05:00 RBC 5.23 MCV 90.6 MCHC 34.4 RDW 13.5 MPV 7.5 Neutrophils % 44.2 D Lymphocytes % 47.6 H D Monocytes % 6.4 Eosinophils % 1.1 Basophils % 0.7 - Medications Given in the ED: ED Medications Discontinued Medications Generic Name Dose Route Start Last Admin Trade Name Freq PRN Reason Stop Dose Admin Morphine Sulfate 4 mg 04/16/20 04:43 04/16/20 05:06 Morphine Sulfate IVPUSH 04/16/20 04:44 4 mg ONCE ONE Administration Morphine Sulfate 2 mg 04/16/20 07:35 04/16/20 07:44 Morphine Injection - IVPUSH 04/16/20 07:36 2 mg ONCE ONE Administration Medical Decision Making - Medical Decision Making 04/16/20 10:18 CT/ABDOMEN PELVIS CT WITH CONTR HISTORY PROVIDED: Rule out inguinal hernia. Sequential axial images were obtained from the domes of the diaphragms through the symphysis pubis following the administration of intravenous contrast material. The lung bases are clear. The liver is normal in size. It is hypodense in texture consistent with diffuse fatty infiltration. No mass lesions identified within the liver. The spleen, pancreas, adrenal glands and kidneys demonstrate no significant abnormalities. There is no evidence of intra- abdominal or retroperitoneal lymphadenopathy or fluid collections. There is a large fat-containing left inguinal hernia and a smaller fat-containing right inguinal hernia. There has been no significant change in the appearance of these hernias since a prior study dated 04/26/2019. There is no evidence of pneumoperitoneum, bowel obstruction or intra-abdominal abscess. There is no CT evidence of acute appendicitis or diverticulitis. Examination of the pelvis demonstrates no evidence of pelvic masses, fluid collections or lymphadenopathy. There is a compression fracture of T11 of uncertain chronicity. There is no additional evidence of acute bony pathology. IMPRESSION: 1. Diffuse fatty infiltration of liver. 2. Bilateral fat-containing inguinal hernias, left greater than right. 3. No evidence of acute pathology within the abdomen and pelvis. Please see above discussion. On reassessment patient has mild inferomedial inguinal pain at this time, no testicular pain or swelling, on exam with mild ttp inferomerial inguinal region without testicular swelling or skin changes or abnormal lay or deficit in cremasteric reflex. Patient very well appearing but did require second dose of morphine, initially had elevated lactate 3.4 which has come own to 2.4. Will get testicular USS r/o torsion or orchitis/epididymitis, then will reassess, anticipate discharge home. Dispo per resident note. US/SCROTUM AND CONTENTS US HISTORY PROVIDED: Rule out torsion. Real time and doppler evaluation of the testes demonstrates the following: The testes are normal in size with the right testicle measuring 4.2 x 2.8 x 1.9 cm and the left testicle measuring 4.5 x 3.0 x 2.1 cm. They are normal in texture with no evidence of testicular masses. There is a small cyst within the left testicle measuring 3 mm. Arterial and venous flow is documented within both testes with no evidence of torsion. No epididymal abnormalities are present. There are small hydroceles identified bilaterally. IMPRESSION: 1. Small left testicular cyst. 2. Small bilateral hydroceles. 3. No evidence of torsion or acute pathology. Provider Orders Category Date Time Status ABDOMEN & PELVIS CT WITH CONTR [CT] Stat CT Scan 04/16/20 05:04 Completed CBC WITH DIFFERENTIAL Stat Lab 04/16/20 05:00 Completed COMP METABOLIC PANEL Stat Lab 04/16/20 05:00 Completed LACTIC ACID Stat Lab 04/16/20 05:00 Completed LACTIC ACID Stat Lab 04/16/20 08:30 Completed Morphine Injection - Medication 04/16/20 07:35 Discontinued 2 mg IVPUSH ONCE ONE Morphine Sulfate Medication 04/16/20 07:41 Discontinued 2 mg .ROUTE .STK-MED ONE Morphine Sulfate Medication 04/16/20 04:49 Discontinued 4 mg .ROUTE .STK-MED ONE Morphine Sulfate Medication 04/16/20 04:43 Discontinued 4 mg IVPUSH ONCE ONE Sodium Chloride [Normal Saline -] 500 ml Medication 04/16/20 07:45 Active IV ASDIR IV Insert NOW Phy Order 04/16/20 04:47 Completed SCROTUM AND CONTENTS US [US] Stat Ultrasound 04/16/20 10:12 Completed Medications Generic Name Dose Route Start Last Admin Trade Name Freq PRN Reason Stop Dose Admin Sodium Chloride 500 mls @ 0 mls/hr 04/16/20 07:45 04/16/20 07:45 Normal Saline - IV 500 mls/hr ASDIR LISA Administration Wide Open Discontinued Medications Generic Name Dose Route Start Last Admin Trade Name Freq PRN Reason Stop Dose Admin Morphine Sulfate 4 mg 04/16/20 04:43 04/16/20 05:06 Morphine Sulfate IVPUSH 04/16/20 04:44 4 mg ONCE ONE Administration Morphine Sulfate Confirm 04/16/20 04:49 Morphine Sulfate Administered 04/16/20 04:50 Dose 4 mg .ROUTE .STK-MED ONE Morphine Sulfate 2 mg 04/16/20 07:35 04/16/20 07:44 Morphine Injection - IVPUSH 04/16/20 07:36 2 mg ONCE ONE Administration Morphine Sulfate Confirm 04/16/20 07:41 Morphine Sulfate Administered 04/16/20 07:42 Dose 2 mg .ROUTE .STK-MED ONE Lab Results WBC 7.5 K/mm3 (4.0-10.0) 04/16/20 05:00 RBC 5.23 M/mm3 (4.00-5.60) 04/16/20 05:00 Hgb 16.3 GM/dL (11.7-16.9) 04/16/20 05:00 Hct 47.4 % (35.4-49) 04/16/20 05:00 MCV 90.6 fl (80-96) 04/16/20 05:00 MCH 31.2 pg (25.7-33.7) 04/16/20 05:00 MCHC 34.4 g/dl (32.0-35.9) 04/16/20 05:00 RDW 13.5 % (11.9-15.9) 04/16/20 05:00 Plt Count 236 K/MM3 (134-434) 04/16/20 05:00 MPV 7.5 fl (7.5-11.1) 04/16/20 05:00 Absolute Neuts (auto) 3.3 K/mm3 (1.5-8.0) 04/16/20 05:00 Neutrophils % 44.2 % (42.8-82.8) D 04/16/20 05:00 Lymphocytes % 47.6 % (8-40) H D 04/16/20 05:00 Monocytes % 6.4 % (3.8-10.2) 04/16/20 05:00 Eosinophils % 1.1 % (0-4.5) 04/16/20 05:00 Basophils % 0.7 % (0-2.0) 04/16/20 05:00 Nucleated RBC % 0 % (0-0) 04/16/20 05:00 Sodium 141 mmol/L (136-145) 04/16/20 05:00 Potassium 4.1 mmol/L (3.5-5.1) 04/16/20 05:00 Chloride 105 mmol/L (98-107) 04/16/20 05:00 Carbon Dioxide 22 mmol/L (21-32) 04/16/20 05:00 Anion Gap 13 MMOL/L (8-16) 04/16/20 05:00 BUN 14.7 mg/dL (7-18) 04/16/20 05:00 Creatinine 0.9 mg/dL (0.55-1.3) 04/16/20 05:00 Est GFR (CKD-EPI)AfAm 114.21 04/16/20 05:00 Est GFR (CKD-EPI)NonAf 98.54 04/16/20 05:00 Random Glucose 90 mg/dL (74-106) 04/16/20 05:00 Lactic Acid 2.4 mmol/L (0.4-2.0) H* 04/16/20 08:30 Calcium 9.1 mg/dL (8.5-10.1) 04/16/20 05:00 Total Bilirubin 0.4 mg/dL (0.2-1) 04/16/20 05:00 AST 35 U/L (15-37) 04/16/20 05:00 ALT 55 U/L (13-61) 04/16/20 05:00 Alkaline Phosphatase 89 U/L (45-117) 04/16/20 05:00 Total Protein 8.2 g/dl (6.4-8.2) 04/16/20 05:00 Albumin 4.4 g/dl (3.4-5.0) 04/16/20 05:00 04/16/20 13:31 On reassessment patient's HR has decreased to low 80s.Patient states pain is nearly back to baseline chronic low abdominal pain at this time. He requests 2 Percocet Rx case the pain recurs while he is traveling (travels on Thursday). I agree and send the Rx but discuss with the patient that if his pain gets to the level where he needs Percocet, he should come back here or go to the nearest ED. He agrees to this, will follow up with his PCP, specific return precautions are discussed, dispo per resident note. Discharge - Discharge Information Problems reviewed: Yes Clinical Impression/Diagnosis: Hydrocele, bilateral, Testicular cyst Inguinal hernia Qualifiers: Obstruction and gangrene presence: without obstruction or gangrene Laterality: bilateral Recurrence: not specified as recurrent Qualified Code(s): K40.20 - Ritchie ateral inguinal hernia, without obstruction or gangrene, not specified as recurrent Condition: Stable Disposition: HOME - Admission No - Additional Discharge Information Prescriptions: Oxycodone HCl/Acetaminophen [Percocet 5-325 mg Tablet] 1 tab PO Q6H PRN #2 tablet MDD 2 PRN Reason: Pain Level 4 - 6 - Follow up/Referral Referrals: Rodrick Mello MD [Staff Physician] - Dominick Ewing MD [Staff Physician] - - Patient Discharge Instructions Patient Printed Discharge Instructions: DI for Groin Hernia, DI for Hydrocele- Adult Additional Instructions: You were seen in the ER for complaints of abdominal pain Your labwork and CT were largely normal Your scan showed an unchanged inguinal hernia. Your ultrasound showed a small left testicular cyst and small bilateral hydroceles. You are to follow up with General Surgery and Urology within 1 week and you have referrals provided to you today. Return to the ER if you develop worsening abdominal pain, constipation, inabi lity to pass gas, testicular pain, vomiting or any other concerning symptoms. - Post Discharge Activity
--- NOTE | 2020-04-16 10:32 | PDOC ---
*Physical Exam - Vital Signs Last Vital Signs Temp Pulse Resp BP Pulse Ox 97.9 F 105 H 18 118/77 98 04/16/20 03:26 04/16/20 03:26 04/16/20 03:26 04/16/20 03:26 04/16/20 03:26 ED Treatment Course - LABORATORY CBC & Chemistry Diagram: 04/16/20 05:00 04/16/20 05:00 - ADDITIONAL ORDERS Additional order review: Laboratory Results 04/16/20 04/16/20 04/16/20 08:30 05:00 05:00 Sodium 141 Potassium 4.1 Chloride 105 Carbon Dioxide 22 Anion Gap 13 BUN 14.7 Creatinine 0.9 Est GFR (CKD-EPI)AfAm 114.21 Est GFR (CKD-EPI)NonAf 98.54 Random Glucose 90 Lactic Acid 2.4 H* 3.4 H* Calcium 9.1 Total Bilirubin 0.4 AST 35 ALT 55 Alkaline Phosphatase 89 Total Protein 8.2 Albumin 4.4 04/16/20 05:00 RBC 5.23 MCV 90.6 MCHC 34.4 RDW 13.5 MPV 7.5 Neutrophils % 44.2 D Lymphocytes % 47.6 H D Monocytes % 6.4 Eosinophils % 1.1 Basophils % 0.7 - Medications Given in the ED: ED Medications Discontinued Medications Generic Name Dose Route Start Last Admin Trade Name Edel PRN Reason Stop Dose Admin Morphine Sulfate 4 mg 04/16/20 04:43 04/16/20 05:06 Morphine Sulfate IVPUSH 04/16/20 04:44 4 mg ONCE ONE Administration Morphine Sulfate 2 mg 04/16/20 07:35 04/16/20 07:44 Morphine Injection - IVPUSH 04/16/20 07:36 2 mg ONCE ONE Administration Medical Decision Making - Medical Decision Making 04/16/20 10:31 Received sign out. Pt seen and assessed at bedside. 49yo M hx inguinal hernia s/p L inguinal hernia surgical repair 2yrs ago presents with L groin pain and bulge of 2 days duration. PE notable for L inguinal hernia Labs reviewed. Lact downtrending, no other concerning findings. CT reviewed: b/l fat-containing inguinal hernias, L>R, no significant change in appearance since study 04/26/19 -US testicular 04/16/20 13:12 US reviewed: small left testicular cyst and small bilateral hydroceles. No e/o torsion or acute pathology No emergent pathology at this time. Pain controlled. Safe for d/c. Rx for percocets sent. Will discharge home with GI and urology f/u. Return precautions given. Pt understands all discharge instructions and all questions were answered. Discharge - Discharge Information Problems reviewed: Yes Clinical Impression/Diagnosis: Hydrocele, bilateral, Testicular cyst Inguinal hernia Qualifiers: Obstruction and gangrene presence: without obstruction or gangrene Laterality: bilateral Recurrence: not specified as recurrent Qualified Code(s): K40.20 - Bilateral inguinal hernia, without obstruction or gangrene, not specified as recurrent Condition: Stable Disposition: HOME - Admission No - Additional Discharge Information Prescriptions: Oxycodone HCl/Acetaminophen [Percocet 5-325 mg Tablet] 1 tab PO Q6H PRN #2 tablet MDD 2 PRN Reason: Pain Level 4 - 6 - Follow up/Referral Referrals: Rodrick Mello MD [Staff Physician] - Dominick Ewing MD [Staff Physician] - - Patient Discharge Instructions Patient Printed Discharge Instructions: DI for Groin Hernia, DI for Hydrocele- Adult Additional Instructions: You were seen in the ER for complaints of abdominal pain Your labwork and CT were largely normal Your scan showed an unchanged inguinal hernia. Your ultrasound showed a small left testicular cyst and small bilateral hydroceles. You are to follow up with General Surgery and Urology within 1 week and you have referrals provided to you today. Return to the ER if you develop worsening abdominal pain, constipation, inability to pass gas, testicular pain, vomiting or any other concerning symptoms. - Post Discharge Activity
[2020-04-16 14:22] VITALS: BP 120/68; PULSE 89
== END 2020-04-16 14:22 | disposition home or self-care (01) ==
LOC: JER 03:08
PROC: 3E033NZ Introduction of Analgesics, Hypnotics, Sedatives into Peripheral Vein, Percutaneous Approach (ICD-10-PCS; principal; 2020-04-16)
DX: K40.20 Bilateral inguinal hernia, without obstruction or gangrene, not specified as recurrent (principal); N43.3 Hydrocele, unspecified; N44.2 Benign cyst of testis
CPT/HCPCS: 36415; 74177-TC; 76870-TC; 80053; 83605; 85025; 99285-25

== ENCOUNTER 2022-09-16 12:21 | Emergency (ER) | payer OTHER ==
[2022-09-16 12:43] VITALS: BP 157/88; PULSE 87; RESP 20; TEMP 97.7; BMI 23.1
[2022-09-16 13:43] LABS: BASO % 0.7 % (0-2.0); HEMOGLOBIN 15.3 GM/dL (11.7-16.9); LYMPH % 25.7 % (8-40); MCH 31.9 pg (25.7-33.7); MEAN CELL VOLUME 93.8 fl (80-96); MEAN PLT VOLUME 7.2 fl (7.5-11.1); MONO % 5.7 % (3.8-10.2); NEUT % 66.9 % (42.8-82.8); PLATELET COUNT 273 10^3/uL (134-434); RBC 4.79 M/mm3 (4.00-5.60); RDW 14.1 % (11.9-15.9); URINE APPEARANCE CLEAR; URINE BILIRUBIN NEGATIVE (NEGATIVE); URINE COLOR YELLOW; URINE GLUCOSE (UA) NEGATIVE (NEGATIVE); URINE KETONE NEGATIVE (NEGATIVE); URINE LEUK ESTERASE NEGATIVE (NEGATIVE); URINE NITRITE NEGATIVE (NEGATIVE); URINE PROTEIN NEGATIVE (NEGATIVE); WHITE BLOOD COUNT 6.5 K/mm3 (4.0-10.0)
[2022-09-16] MEDS ORDERED: KETOROLAC TROMETHAMINE 30 MG/1 ML VIAL IVPUSH ONE (13:43)
[2022-09-16] MEDS ORDERED: FAMOTIDINE 20 MG/50 ML IVPB 20 MG/50 ML MG IVPB ONE ×2 (13:44→13:49)
[2022-09-16] MEDS ORDERED: SODIUM CHLORIDE 0.9% 500 ML INFUS.BAG IV ONE (13:47)
[2022-09-16] MEDS ORDERED: KETOROLAC TROMETHAMINE 30 MG/1 ML VIAL ONE (13:49)
[2022-09-16 13:52] LABS: PROTHROMBIN TIME (PATIENT) 11.5 SEC (9.7-13.0)
[2022-09-16 13:55] LABS: ACTIVATED PTT 30.9 SECONDS (25.2-36.5)
[2022-09-16 14:04] LABS: CALCIUM 9.7 mg/dL (8.5-10.1)
[2022-09-16 14:05] LABS: BLOOD UREA NITROGEN 13.4 mg/dL (7-18)
[2022-09-16 14:08] LABS: CREATININE 0.8 mg/dL (0.55-1.3)
[2022-09-16 14:10] LABS: TOT PROT 7.8 g/dl (6.4-8.2)
== END 2022-09-16 17:30 | disposition home or self-care (01) ==
LOC: JER 12:21
PROC: 3E033GC Introduction of Other Therapeutic Substance into Peripheral Vein, Percutaneous Approach (ICD-10-PCS; principal; 2022-09-16)
DX: R10.11 Right upper quadrant pain (principal)
CPT/HCPCS: 36415; 74177-TC; 76705-TC; 80053; 81003; 83605; 83690; 85025; 85610; 85730; 86850; 86900; 86901; 87086; 99285-25

== ENCOUNTER 2023-01-12 09:29 | Emergency (ER) | payer OTHER ==
[2023-01-12 09:36] VITALS: BP 159/94; PULSE 104; RESP 24; TEMP 98.3; BMI 23.5
[2023-01-12] MEDS ORDERED: ALBUTEROL SO4 2.5/IPRATROPIUM 0.5 INH SOL 3 ML VIAL.NEB. NEB ONE ×2 (11:10→11:43)
[2023-01-12] MEDS ORDERED: DEXAMETHASONE 4 MG TABLET (FP) PO ONE (11:15)
[2023-01-12] MEDS ORDERED: ACETAMINOPHEN 325 MG TABLET (FP) PO ONE (11:15)
[2023-01-12] MEDS ORDERED: ACETAMINOPHEN 325 MG TABLET (FP) ONE (11:43)
[2023-01-12] MEDS ORDERED: DEXAMETHASONE 4 MG TABLET (FP) ONE (11:43)
== END 2023-01-12 14:02 | disposition home or self-care (01) ==
LOC: JERFT 09:29 → JER 09:29 → JERFT 14:02
PROC: 3E0F7GC Introduction of Other Therapeutic Substance into Respiratory Tract, Via Natural or Artificial Opening (ICD-10-PCS; principal; 2023-01-12)
DX: R07.0 Pain in throat (principal); R13.10 Dysphagia, unspecified; R05.9 Cough, unspecified; J02.9 Acute pharyngitis, unspecified; J34.89 Other specified disorders of nose and nasal sinuses; R09.3 Abnormal sputum; J40 Bronchitis, not specified as acute or chronic; Z20.822 Contact with and (suspected) exposure to COVID-19
CPT/HCPCS: 0241U-QW; 36415; 71046-TC-FY; 87070; 87491; 87591; 87661; 99284-25